=== PATIENT | male | born 1995 | race Caucasian/White ===

== ENCOUNTER 2024-05-26 03:12 | Emergency (ER) | payer OTHER ==
[2024-05-26 03:26] VITALS: BP 134/75; O2SAT 96
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
[2024-05-26] MEDS: IBUPROFEN 800 MG TABLET PO STA (03:39)
[2024-05-26] MEDS: ACETAMINOPHEN 500 MG TABLET PO STA (03:39)
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
== END 2024-05-26 04:16 | disposition home or self-care (01) ==
LOC: ED 03:12
DX: S63.601A Unspecified sprain of right thumb, initial encounter (principal); S46.912A Strain of unspecified muscle, fascia and tendon at shoulder and upper arm level, left arm, initial encounter; S80.01XA Contusion of right knee, initial encounter; Y04.0XXA Assault by unarmed brawl or fight, initial encounter
CPT/HCPCS: 73000; 73130; 73562; 99283; 99284; A9270